=== PATIENT | female | born 1975 | race Caucasian/White ===

== ENCOUNTER 2025-04-02 18:08 | Inpatient (IN) | payer BC, SELFPAY ==
[2025-04-02] VITALS (9 sets, daily range): BP systolic 119–160; BP diastolic 65–102; BMI 25.3
--- NOTE | 2025-04-02 14:28 | CON.NEURO ---
Neuro Assessment/Plan
Assessment
Acute onset right arm and leg weakness in a patient with a prior history of pituitary adenoma
Differential diagnosis includes stroke despite relatively young age, multiple sclerosis creating transverse myelitis which is less likely based on absence of urinary dysfunction
Plan
Check MRI of brain with and without contrast
Check MRI of cervical spine with and without contrast
Check CTA head and neck
Check blood work for potential metabolic abnormalities producing symptomatology
Rehabilitation evaluations
Consider EMG if central nervous system evaluation is not demonstrative of an abnormality
Will follow
Consultation
Order
Date of Consultation: 04/02/25
Requesting Provider: Emergency department physician
Reason for Consult: Right sided weakness
Subjective/Objective
Subjective Data
Date of Service: April 02, 2025
Right handed
Patient reports 3 days ago awakening at 0200 experiencing new onset numbness progressing to weakness across days leading to her presentation at this hospital's emergency department today. No prior events.
Awoke Thursday night from sleep with right-sided chest pain and SOB, tingling and numbness right neck. The patient was able to return to sleep however subsequently did not feel mentation was normal. Numbness at bottom of arm proximally and
distally has been persistent since that time.
Underwent a massage without benefit
Walking was become abnormal 2 days ago. No falling.
One day ago noted difficulty with writing. None of her symptoms have improved since onset of symptoms or worsened.
No involvement on left-side.
Objective Data
Vital Signs
Temp Pulse Resp BP Pulse Ox
36.9 C 96 16 160/100 98
04/02/25 12:37 04/02/25 12:37 04/02/25 12:37 04/02/25 12:37 04/02/25 12:37
Patient Allergies
Penicillins Allergy (Verified 04/02/25 12:40)
Unknown
CVA Assessment
Onset of Stroke Symptoms
Onset of symptoms known: Yes
Date of onset of symptoms: 03/30/25
Time of onset of symptoms: 02:00
Time pt last seen normal is known: Yes
Date last time pt seen normal: 03/30/25
Time last time pt seen normal: 22:00
NIH Stroke Score
Level of Consciousness: 0 - Alert
LOC Questions: 0-Answers both correctly
LOC Commands: 0-Performs both correctly
Best Horizontal Gaze: 0-Normal
Visual Mauricio: 0=Normal, no visual loss
Facial Palsy: 0=Normal, symmetrical
Motor - Right Arm: 1=Drift < 10 seconds
Motor - Left Arm: 0=No drift 10 seconds
Motor - Right Le-No drift 5 seconds
Motor - Left Le-No drift 5 seconds
Limb Ataxia: 1-Present in one limb
Sensation: 0-Normal
Best Language: 0-No aphasia
Dysarthria: 0-Normal
Extinction and Inattention: 0-No abnormality
NIH Total Score:: 2
Tenecteplase Contraindications
Inclusion and Exclusion criteria reviewed: Yes
Reasons for NON-Tx with Thrombolytics ABSOLUTE Exclusions: Time-out of window
IAT Contraindications: NIHSS < 6
Review of Systems
-
History Source: Patient
All other systems: Reviewed and negative
Constitutional: Fatigue
EENT: Negative Blurry Vision or Swallowing Difficulty
Respiratory: Negative Trouble Breathing
Cardiac: Chest Pain (on right chest)
Abdomen/GI: Negative Incontinence of Stool
Genitourinary: Negative Incontinence
Musculoskeletal: Neck Pain (posterior shoulder); Negative Back Pain
Neuro: Weakness and Numbness; Negative Dizzy or Headache
Physical Exam
-
General: No Apparent Distress and Appears Stated Age
Eyes: OU Absent Papilledema, Able to visualize OU, Round OU, [place] Conjunctivae and No Ptosis
HEENT: Anicteric and Moist Mucous Membranes
Neck: Full Range of Motion
Respiratory: No Dyspnea
Cardiac: No JVD
GI: Non-distended
Skin: Unremarkable
Extremities: No Clubbing, No Cyanosis and No Edema
Psych: Intact Judgement/Insight
Extended Neurological Exam
Mood & Affect: Mood Unremarkable and Affect Unremarkable
Attention Span & Concentration: Awake, Alert, Interactive and No Difficulty with 2 Step Request
Memory: Unremarkable
Tremor: Hand Tremor Absent and Head Tremor Absent
Speech: Quality Unremarkable and Quantity Unremarkable
Cranial Nerve II: Left Eye: Pupillary Reactivity Unremarkable, Pupillary Size Unremarkable and Visual Mauricio Intact
Cranial Nerve II: Right Eye: Pupillary Reactivity Unremarkable, Pupillary Size Unremarkable and Visual Mauricio Intact
Cranial Nerves III, IV, : Extraocular Movement: Extraocular Movement Full in all Directions and No Ptosis
Cranial Nerve V: Facial Sensation: Facial Sensation Unremarkable to Cold
Cranial Nerve VII: Facial Symmetry: Normal Facial Symmetry
Cranial Nerve VIII: Hearing: Unremarkable Hearing to Normal Conversational Volume
Cranial Nerves IX, X: Palate Movement: Palate Elevation Symmetric
Cranial Nerve XI: Shoulder Shrug: Unremarkable
Cranial Nerve XII: Tongue Protusion: Midline
Muscle Strength, Overall: Reduced (Proximal right upper greater than lower extremity, 4+ out of 5 in upper extremity, 5- out of 5 right lower extremity; full distally except for right hand finger extensors 4+ out of 5) and Otherwise Intact
Muscle Bulk & Tone: Bulk Unremarkable and Tone Unremarkable
Pronator Drift: Drift in Right Upper Extremity; Negative Drift in Right Lower Extremity
Deep Tendon Reflexes: Unremarkable Throughout
Cold Sensation: Unremarkable
Vibration Sensation: Unremarkable
Touch Sensation: Unremarkable
Coordination: [id number] Testing Unremarkable
Babinski Sign: Absent Bilaterally
Data Reviewed
-
MRI Head: Ordered
MRI Cervical Spine: Ordered
Labs: Ordered and Report Reviewed
Reviewed with: Physician, Nurse and Patient
Old Records: Summarized
Past History
Past History
ED Past Medical History: Other (Migraine headaches, pituitary adenoma since age 23)
ED Past Surgical History: Appendectomy, (x3) and Other (breast surgery)
Social History
Tobacco: Non-smoker
Alcohol: Occasional
Drug: None
Personal: Single
Living: with family
Employment: Employed
Family History
Family History: Other (reviewed and non-contributory)
[2025-04-02 14:34] LABS: % Basophils 0.5 % (0-2); % Eosinophils 2.5 % (0-6); % Immature Granulocytes 0.2 % (0-0.5); % Lymphocytes 14.7 % (20.5-51.1); % Monocytes 7.6 % (1.7-9.3); % Neutrophils 74.5 % (42.2-75.2); Absolute Eosinophils 0.2 10^3/uL (0-0.7); Absolute Lymphocytes 1.3 10^3/uL (1.2-3.4); Absolute Monocytes 0.7 10^3/uL (0.1-0.6); Absolute Neutrophils 6.5 10^3/uL (1.4-6.5); Hematocrit 35.7 % (37.0-47.0); Hemoglobin 12.2 g/dL (12.0-16.0); Mean Corp Hgb Conc. 34.2 g/dL (33.0-37.0); Mean Corpuscular Hgb 30.6 pg (27.0-31.0); Mean Corpuscular Volume 89.5 fL (81.0-99.0); Mean Platelet Volume 10.5 fL (7.4-10.4); Nucleated Red Blood Cells % 0 %; Platelet Count 219 10^3/uL (130-400); Red Blood Cell Count 3.99 10^6/uL (4.20-5.40); White Blood Cell Count 8.8 10^3/uL (4.8-10.8)
--- NOTE | 2025-04-02 14:50 | ED.GENMED ---
History of Present Illness
General
Chief Complaint: Musculo-Skeletal Complaint
Time Seen by Provider: 04/02/25 13:48
History of Present Illness
History of Present Illness:
50-year-old female without significant past medical history presenting to the emergency department for right arm weakness. Patient notes that she woke up on with some tingling to her right upper extremity. She did have some discomfort to
the back of her neck so thought that maybe it was a pinched nerve. She went to get a massage, however reports no interval improvement. Yesterday she felt that her arm was more weak. She went to a and was trying to write her name in the
gas list, however was unable to do so so she was prompted to come to the hospital by her friends. Denies any history of stroke. Denies any family history of neurologic diseases. Denies fever or recent illness. Denies chest pain or difficulty
breathing. Denies any known recent injury or trauma. Denies additional acute medical complaints.
Past History
Past History
ED Past Medical History: Other (Migraine headaches)
ED Past Surgical History: Appendectomy, (x3) and Other (breast surgery)
Phy Exam
Physical Exam
Physical Exam:
General: Well-appearing, no clinical signs of dehydration, nontoxic and in no acute distress
HEENT: protecting airway
Neck: appears supple
CV: Normal heart rate, regular rhythm
Resp: No accessory muscle use, no increased work of breathing, lungs clear to auscultation bilaterally
Abd: No distention
Extremities: No deformities, no swelling, no erythema. 5/5 strength of the right upper extremity with noticeable weakness in comparison to the left. Range of motion grossly intact. Mild tenderness to the right posterior shoulder. No midline
cervical tenderness
Neuro: alert, no focal neurologic deficit
: deferred
Rectal: deferred
Psych: Normal affect
Skin: Intact
Course
Orders/Labs/Results
Orders:
Orders
04/02/25 14:14
Electrocardiogram (*1) Stat
Reason for Study: Other
Other Reason for Exam: neuro symptoms
EKG- Treatment ONCE
04/02/25 14:27
Consult Neurology [NEUROLOGY CONSULT] Urgent
Consulting Provider: Markus Monreal
Was physician already notified: Yes
JIM, IgG Reflex to HEp-2 [S] Urgent
Comment: ADD ON
Complete Blood Count/With Diff Urgent
Comprehensive Metabolic Panel Urgent
Erythrocyte Sed Rate Urgent
Comment: ADD ON
Ferritin Routine
Comment: ADD ON
Folate Routine
Comment: ADD ON
TSH Reflex To Free T4 Routine
Comment: ADD ON
Vitamin B12 Routine
Comment: ADD ON
04/02/25 14:31
Add On- LAB Routine
Comments:: Please add to today's labs or draw as routine
Tests Added?: TSH reflex, Ferritin, Folate, Vit. B12, ESR, JIM
04/02/25 14:32
CT Head & Neck Angio W/wo IV Urgent
Comment:
Reason For Exam: L-arm weakness
04/02/25 14:47
MR Brain W/o & With Contrast Routine
Comment:
Reason For Exam: right arm weakness
Recent pill cam endoscopy?: No
04/02/25 14:48
MR Cervical Spine Without & W Routine
Comment:
Reason For Exam: neck pain, ? transverse myelitis
Recent pill cam endoscopy?: No
04/02/25 15:05
Aspirin Low Dose EC [Aspir Low (Enteric Coated)] 81 mg PO NOW ONE
04/02/25 15:06
ECHO 2D MMode Doppler w Definity [Echo 2D/M Color Dop w Definity] Routine
Reason for Exam: stroke, chest discomfort
04/02/25 15:28
LDL Cholesterol, Direct Routine
Lipid Profile [Cardiovascular Evaluation] Routine
Comment: May add to blood work in lab
04/03/25 08:00
Aspirin Low Dose EC [Aspir Low (Enteric Coated)] 81 mg PO DAILY
Abnormal Lab Results
04/02/25 04/02/25
14:27 15:28
RBC 3.99 L 10^6/uL
(4.20-5.40)
Hct 35.7 L %
(37.0-47.0)
MPV 10.5 H fL
(7.4-10.4)
Absolute Monos (auto) 0.7 H 10^3/uL
(0.1-0.6)
Lymphocytes % 14.7 L %
(20.5-51.1)
Chloride 109 H mmol/L
(98-107)
Alkaline Phosphatase 36 L U/L
(38-126)
Triglycerides 418 H mg/dl
(10-149)
Total Cholesterol 334 H mg/dl
(50-199)
04/02/25 14:27
04/02/25 14:27
Vital Signs
Initial and Last Documented VS:
Initial Vital Signs
Temp Pulse Resp BP Pulse Ox
98.4 F 96 16 160/100 98
04/02/25 12:37 04/02/25 12:37 04/02/25 12:37 04/02/25 12:37 04/02/25 12:37
Last Documented Vital Signs
Temp Pulse Resp BP Pulse Ox
98.4 F 83 18 145/102 100
04/02/25 12:37 04/02/25 15:02 04/02/25 15:02 04/02/25 15:02 04/02/25 15:02
MDM/Problems Addressed
MDM/Problems Addressed:
50-year-old female presenting for right arm weakness. Vital signs are significant for high blood pressure.
On exam patient resting comfortably, no acute distress. Unremarkable cardiac and pulmonary exam. EKG obtained, nonischemic, no arrhythmia. Patient with obvious weakness of the right upper extremity in comparison to the left, however 5/5, no
drift. Sensation grossly intact. Patient without significant risk factors for stroke, however abnormal exam. For this reason we will obtain CT head imaging and consult with neurology. MS is also consideration.
15:30 -neurology to bedside. Continued plan for CT imaging. Neurology recommending admission for MRI.
17:00- CT negative for acute process. Again plan for admission
*Critical Care Note
Total Time (30-74mins, 75-104mins- exclusive of procedures): Not Applicable
ED Attending Note
-
Portions of this chart may have been created with voice recognition software.� Occasional wrong word or��sound alike� substitutions may have occurred due to the inherent limitations of voice recognition software.
Discharge Plan
Departure
Patient Disposition: Admit
Date of Disposition: 04/02/25
Time of Disposition: 17:13
Presentation/result/management discussed w/ accepting MD/DO: Hospitalist
Patient with high blood pressure during this ER visit?: Yes
Condition: Good
Discharge Problem:
Right arm weakness
Prescriptions:
No Action
No Current Medications
0
Referrals:
Nicole Singh CRNP [Family Provider, Family Practice]
Interventions
Interventions:
*Risk Screen - Suicide Last Done: 04/02/25 12:37
*General Assessment Last Done: 04/02/25 15:22
*Neglect/Abuse Screening Last Done: 04/02/25 12:37
*ED- Fall Risk Assessment Last Done: 04/02/25 15:22
*ED COVID-19 Vaccine History Last Done: 04/02/25 15:22
ED-Musculoskeletal Assessment Last Done: 04/02/25 14:25
Discharge Date and Time
Print Language: IRISH
--- NOTE | 2025-04-02 15:11 | EDRN ---
Per Neurology Dr Monreal report to this STRICKLER ATTENDANT, the pt needs MRI imaging studies. This STRICKLER ATTENDANT attempted to call the library acquisitions technician multiple times, but no answer. This STRICKLER ATTENDANT spoke with the DH header operator who stated the dayshift library acquisitions technician shift ended at 3pm but
there is an library acquisitions technician on-call from 3pm-0630am that could be called in for STAT MRI per orders.
Per Neurology Dr Monreal verbal order to this STRICKLER ATTENDANT, the pt does NOT need STAT MRI, the pt can wait until tomorrow for ordered MRI imaging studies.
dispo plan for this pt is admission.
Neurology Dr Monreal also put in orders for Aspirin PO to be administered now, see EMAR.
[2025-04-02 15:19] LABS: ALT (SGPT) 18 U/L (0-35); AST (SGOT) 25 U/L (14-36); Albumin 4.7 g/dl (3.5-5.0); Alkaline Phosphatase 36 U/L (38-126); Blood Urea Nitrogen 14 mg/dl (7-17); Calcium 9.1 mg/dl (8.4-10.2); Carbon Dioxide 25 mmol/L (22-30); Chloride 109 mmol/L (98-107); Estimated Creatinine Clearance 106 ml/min; Glucose 89 mg/dl (70-99); Potassium 4.4 mmol/L (3.5-5.1); Sodium 138 mmol/L (135-145); Total Protein 7.4 g/dl (6.3-8.2); eGFR > 60.00
[2025-04-02] MEDS: ASPIR LOW (ENTERIC COATED) 81 MG PO (15:20)
[2025-04-02 15:27] LABS: TSH Reflex To Free T4 0.79 uIU/ml (0.47-4.68)
[2025-04-02 15:31] LABS: Ferritin 13.6 ng/ml (6.24-137)
[2025-04-02 15:55] LABS: HDL Cholesterol 81 mg/dl
[2025-04-02 16:03] LABS: Folate 6.7 ng/ml (2.76-20); Vitamin B12 359 pg/ml (239-931)
[2025-04-02 16:06] LABS: Total Cholesterol 334 mg/dl (50-199)
[2025-04-02 16:11] LABS: Triglyceride 418 mg/dl (10-149)
[2025-04-02 16:19] LABS: Erythrocyte Sed Rate 14 mm/hour (0-20)
[2025-04-02 16:34] LABS: LDL Cholesterol, Direct 189 mg/dl
--- NOTE | 2025-04-02 17:47 | HPS.HSE ---
Family Physician
-
Family Physician: Nicole Singh
Chief Complaint
-
Right-sided weakness
History of Present Illness
50-year-old female with history of migraine headaches, started developing right upper extremity weakness and paresthesias early morning. Had difficulty writing using her right hand. She is right-handed.
Denies headaches. She felt as though it may have been a pinched nerve in her neck but symptoms persisted. She was referred to the emergency room by her friends.
Denies history of TIA or stroke.
Her only home medication is sumatriptan as needed for migraines, last used a month ago.
She does take herbal supplements.
Denies ambulatory dysfunction or ataxia. Denies lower extremity symptoms.
Remote history of prolactinoma, treated with sumatriptan for approximately 5 years starting at the age of 23. Subsequently discontinued due to shrinkage of the tumor. Last MRI of the brain has been many years ago.
Medical History
Past Medical History
Past Medical History: Reports Other
Additional Past Medical History:
Migraine headaches
Pituitary adenoma, prolactinoma
Past Surgical History: Reports Appendectomy and
Additional Past Surgical History:
Right breast lumpectomy, benign
Social History
Tobacco: Non-smoker
Alcohol: Occasional
Drug: None
Personal:
Living: With Family
Employment: Employed
Family History
Family History: Not pertinent
Allergies / Home Medications
Allergies reflects when Allergies were last updated in [facility].
Home Medications with original date entered in [facility]
Allergy/Medication List:
Allergies
Allergy/AdvReac Type Severity Reaction Status Date / Time
levofloxacin (From Levaquin) Allergy Hives Verified 04/02/25 15:22
Penicillins Allergy Unknown Verified 04/02/25 15:22
Home Medications
Sumatriptan 25 mg p.o. as needed headache
Review of Systems
-
History Source: Patient
A 12 point ROS was completed and negative except as noted: Yes
Physical Exam
Vital Signs
Vital Signs
Temp Pulse Resp BP Pulse Ox
98.4 F 84 16 129/87 99
04/02/25 12:37 04/02/25 17:00 04/02/25 17:00 04/02/25 17:00 04/02/25 17:00
Physical Exam
General: Well Developed, Well Nourished, No Apparent Distress and Comfortable
HEENT: NormoCephalic, Anicteric and Moist mucous membranes
Respiratory: Clear
Cardiac: S1/S2 and Regular Rhythm
Breast: Deferred by me
GI: Soft, Non Tender and Non Distended
Genito-urinary: Deferred by me
Musculoskeletal: No Clubbing, No Cyanosis and No Edema
Skin: Warm and Dry
Neuro: AO x 3 and Other (4 out of 5 right upper extremity motor strength, 5 out of 5 left upper extremity, nonfocal lower extremities)
Hematologic/Lymphatic: No Lymphadenopathy
Psych: Calm
Laboratory Results
-
04/02/25 14:27
04/02/25 14:27
Laboratory Results
Total Bilirubin 1.0 mg/dl (0.2-1.3) 04/02/25 14:27
AST 25 U/L (14-36) 04/02/25 14:27
ALT 18 U/L (0-35) 04/02/25 14:27
Alkaline Phosphatase 36 U/L (38-126) L 04/02/25 14:27
Impression/Plan
-
Subacute right upper extremity weakness -hemodynamically stable. Symptoms started 3 days ago. Differential diagnosis of stroke versus myelitis versus other etiology. NIHSS of 2 per neurology.
CTA head and neck without significant pathology. Hypoplastic left vertebral artery noted. Multilevel degenerative disc disease.
Admit to telemetry. Neurology consulted. Continue aspirin. Brain MRI with and without contrast, cervical spine MRI with and without contrast.
Echocardiogram ordered by neurology.
Hyperlipidemia noted, not on treatment currently. LDL 189, total cholesterol 334, triglycerides 418. HDL 81. Recommend follow-up with PCP.
If stroke confirmed on MRI, start statin.
History of migraine headaches -hold sumatriptan until stroke ruled out. Use Compazine as needed.
History of pituitary prolactinoma
Full code
--- NOTE | 2025-04-02 20:00 | PTCARENOTE ---
Received patient from ED at approx 1930. Patient ambulated from stretcher to bed. AAA x 3. Oriented to room. Call vann in reach.
[2025-04-02 20:20] LABS: C-Reactive Protein < 5.00 mg/L (0.0-10.00)
[2025-04-02] MEDS: TYLENOL 650 MG PO (20:23)
[2025-04-02 22:59] LABS: Troponin I < 0.012 ng/ml
[2025-04-02] MEDS: LOVENOX SC (23:02)
[2025-04-02] MEDS: LIDOCAINE 4% PATCH 1 PATCH TOPICAL (23:42)
[2025-04-03] MEDS: OFIRMEV 100 IV ×2 (01:58→21:52)
[2025-04-03 03:22] VITALS: BP 98/62
[2025-04-03 06:00] VITALS: BMI 24.5
[2025-04-03 07:37] VITALS: BP 145/96
[2025-04-03] MEDS: ASPIR LOW (ENTERIC COATED) 81 MG PO (09:44)
[2025-04-03] MEDS: TYLENOL 650 MG PO (09:54)
[2025-04-03 11:05] VITALS: BP 126/91
--- NOTE | 2025-04-03 14:49 | W.PN.HOSP.TC ---
Today's Communication/Plan
-
Steroids
Assessment / Plan
Assessment / Plan
50-year-old presented with difficulty writing with her right hand
CTA of the head and neck-no acute intracranial pathology. No evidence of acute vascular pathology. Hypoplastic left vertebral artery. Multilevel degenerative disc disease with moderate disc space narrowing C6-C7. Mild disc space narrowing C3-C4
and C4-C5.
EKG sinus rhythm no ischemia
MRI of the brain-no acute changes. Dominant right vertebral artery is tortuous and compresses the right anterior margin of the medulla
Echo-normal LV size and function. EF 55 to 60%. Mild concentric LVH. Mild MR, mild TR, negative bubble study.
CVS: S1-S2 normal
Chest: CTA B/L
Abdomen: Soft, NT / Bowel sounds present
Extremities: No edema, normal pulses
CLIENT SERVICE COORDINATOR: No facial droop. Mild numbness of the right medial forearm, mild weakness of the right forearm good strength of the shoulder on the right side
# Subacute right upper extremity weakness
Started 3 days ago
Patient does not have symptoms of dizziness vertigo, dysarthria-symptoms are unlikely secondary to right dominant vertebral artery tortuosity but secondary to cervical radicular symptoms.
Neurosurgery evaluation requested
Trial of steroids
# Hyperlipidemia not on treatment currently-outpatient follow-up
# History of migraine headaches-okay to use triptans as needed
# History of pituitary prolactinoma
# DVT prophylaxis-Lovenox
# Full code
D/W Neurosurgery. Trial of steroids and outpatient follow-up with neurosurgery. If symptoms do not improve she may need surgery
Part of this note was created using voice recognition system. Occasional wrong word or��sound alike� substitutions may have inadvertently occurred due to the inherent limitations of voice recognition software. If noted kindly bring it to my
attention for correction.
Anticipated Discharge: Within 24 hours
Subjective/Interval History
-
Date of Service: April 03, 2025
Objective Data
-
Vital Signs:
Vital Signs
Temp Pulse Resp BP Pulse Ox
98.2 F 78 20 126/91 100
04/03/25 11:05 04/03/25 11:05 04/03/25 11:05 04/03/25 11:05 04/03/25 11:05
[2025-04-03] MEDS: DECADRON 10 MG IV (15:49)
[2025-04-03 15:51] VITALS: BP 123/85
[2025-04-03] MEDS: FLUSH (NSS) 1 FLUSH IV (15:55)
--- NOTE | 2025-04-03 16:33 | CM ---
general manager reviewed patient's chart and met with patient and patient lives with her parents or children in a 2 story home, patient is independent with adl's and ambulation, no dme, patient drives, home when stable, no needs.
PCP: Nicole Singh
Pharmacy: [facility] in [place]
[2025-04-03] MEDS: LOVENOX 40 MG SC (18:46)
--- NOTE | 2025-04-03 19:30 | W.PN.NEURO.1 ---
Today's Communication / Plan
-
outpatient PT
Dexamethasone 4 q6 IV then discharge on medrol dosepak
Neuro Assessment/Plan
Assessment
MRI brain imgs/report rev'd, normal
MRI cervical spine report rev'd, 'At T1-2, there is a focal moderate to large right subarticular and foraminal disc protrusion, which results in slight compression of the right anterolateral margin of the spinal cord, and contributes to right
foraminal narrowing which appears to be moderate. This most likely is the etiology for the patient's right-sided symptoms.'
by exam I agree this is the likely symptomatic lesion, with right sided weakness, loss of pinprick at the level, and loss of vibration below the level of the lesion; paraspinal tenderness, and +Lhermitte's sign. Patient ambulatory, no falls,
symptoms relatively mild, would try conservative management with physical therapy, gentle traction, Dexamethasone; agree 4mg q6 IV in hospital and discharge on medrol dosepak. spoke with Dr Moon, nsx, no obvious cord compression, discuss outpatient
surgery if not improve.
patient agrees, does not want surgery now
Subjective/Objective
Subjective Data
Date of Service: April 03, 2025
right arm weakness/tingling/numbness persists, mainly in the medial right forearm/arm
no subjective weakness right leg
pain right paraspinals/near shoulder blade
Objective Data
Vital Signs
Temp Pulse Resp BP Pulse Ox
36.7 C 80 20 123/85 99
04/03/25 15:51 04/03/25 15:51 04/03/25 15:51 04/03/25 15:51 04/03/25 15:51
Lab Results
04/02/25 14:27
04/02/25 14:27
Sodium 138 mmol/L (135-145) 04/02/25 14:27
Potassium 4.4 mmol/L (3.5-5.1) 04/02/25 14:27
BUN 14 mg/dl (7-17) 04/02/25 14:27
Glucose 89 mg/dl (70-99) 04/02/25 14:27
Calcium 9.1 mg/dl (8.4-10.2) 04/02/25 14:27
LDL Cholesterol Direct 189 mg/dl 04/02/25 15:28
LDL Cholesterol, Calc Not Reportable 04/02/25 15:28
Vitamin B12 359 pg/ml (239-931) 04/02/25 14:27
Patient Allergies
levofloxacin (From Levaquin) Allergy (Verified 04/02/25 15:22)
Hives
Penicillins Allergy (Verified 04/02/25 15:22)
Unknown
Physical Exam
-
AAOx3
face symmetric
RUE deltoid/biceps/triceps 5-/5, resident care coordinator/finger abductors 4/5, LUE full strength
RUE 5-/5, LLE full strength
decreased pin right T1-T2 (medial forearm, upper arm; intact right C8 and above, and intact on the chest; intact pin right side
mild vibratory loss RLE
+tender right T1-T2 paraspinals
+Lhermitte's sign
[2025-04-03 20:51] VITALS: BP 140/97
[2025-04-03] MEDS: DECADRON 4 MG IV (21:51)
[2025-04-03 23:17] VITALS: BP 121/78
[2025-04-04 03:11] VITALS: BP 109/69
[2025-04-04] MEDS: DECADRON 4 MG IV ×2 (03:15→09:57)
[2025-04-04] MEDS: TYLENOL 1000 MG PO (03:19)
[2025-04-04 07:00] VITALS: BP 110/72
[2025-04-04] MEDS: ASPIR LOW (ENTERIC COATED) 81 MG PO (08:22)
[2025-04-04] MEDS: FLUSH (NSS) 2 FLUSH IV (09:58)
--- NOTE | 2025-04-04 10:17 | CM ---
Chart reviewed, home no needs when stable.
Plan; Home when stable.
[2025-04-04 11:55] VITALS: BP 126/81
--- NOTE | 2025-04-04 14:40 | W.PN.HOSP.TC ---
Today's Communication/Plan
-
Discharge
Assessment / Plan
Assessment / Plan
50-year-old presented with difficulty writing with her right hand
CTA of the head and neck-no acute intracranial pathology. No evidence of acute vascular pathology. Hypoplastic left vertebral artery. Multilevel degenerative disc disease with moderate disc space narrowing C6-C7. Mild disc space narrowing C3-C4
and C4-C5.
EKG sinus rhythm no ischemia
MRI of the brain-no acute changes. Dominant right vertebral artery is tortuous and compresses the right anterior margin of the medulla
Echo-normal LV size and function. EF 55 to 60%. Mild concentric LVH. Mild MR, mild TR, negative bubble study.
CVS: S1-S2 normal
Chest: CTA B/L
Abdomen: Soft, NT / Bowel sounds present
Extremities: No edema, normal pulses
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 Mild numbness of the right medial forearm, mild weakness of the right forearm good strength of the shoulder on the right side, no pain today
# Subacute right upper extremity weakness
Start[address]
Patient does not have symptoms of dizziness vertigo, dysarthria-symptoms are unlikely secondary to right dominant vertebral artery tortuosity but secondary to cervical radicular symptoms.
Neurosurgery evaluation appreciated
Trial of steroids - pt feels better
# Hyperlipidemia not on treatment currently-outpatient follow-up
# History of migraine headaches-okay to use triptans as needed
# History of pituitary prolactinoma
# DVT prophylaxis-Lovenox
# Full code
D/W Neurosurgery. Trial of steroids and outpatient follow-up with neurosurgery. If symptoms do not improve she may need surgery
Part of this note was created using voice recognition system. Occasional wrong word or��sound alike� substitutions may have inadvertently occurred due to the inherent limitations of voice recognition software. If noted kindly bring it to my
attention for correction.
Pt wants to avoid surgery now and follow up if not better
Anticipated Discharge: Today
Subjective/Interval History
-
Date of Service: April 04, 2025
Objective Data
-
Vital Signs:
Vital Signs
Temp Pulse Resp BP Pulse Ox
98.3 F 83 18 126/81 99
04/04/25 11:55 04/04/25 11:55 04/04/25 11:55 04/04/25 11:55 04/04/25 11:55
I&O
04/03/25 04/04/25 04/05/25
06:59 06:59 06:59
Intake Total 240 / 240
Balance 240 / 240
--- NOTE | 2025-04-04 14:40 | W.DS.TRANS ---
Addendum entered and electronically signed by Dianelys England MD 04/04/25 17:22:
Dictation- [id number]
Original Note:
DC Summary - Senior Technical Architect
-
Discharge Instructions:
Discharge Diagnosis/Procedures Cervical radiculopathy
T1-T2 focal moderate to large right subarticular
and foraminal disc protrusion with compression
of the right anterolateral marginal spinal cord
and right foraminal narrowing
Diet As tolerated
Activity As tolerated
Driving Restrictions do not drive if you feel weak
Instructions:
Stand-Alone Forms:
Changes to Home Medications: Yes
Discharge Medications:
DC Medications w/original date entered in [facility] [place]
magnesium L-threonate 1XD 04/02/25
acetaminophen 500 mg tablet (Tylenol Extra Strength) 1,000 mg (2 x 500 mg) PO Q6HPRN PRN pain #0 tabs 04/04/25
famotidine 20 mg tablet (Pepcid) 20 mg PO DAILY Gastrointestinal issue #20 tabs 04/04/25
prednisone 10 mg tablet See Rx Instructions .Route .COMPLEX neck #30 tabs 04/04/25
Home Medication Changes
new
acetaminophen 500 mg tablet (Tylenol Extra Strength) 1,000 mg (2 x 500 mg) PO Q6HPRN PRN pain #0 tabs 04/04/25
famotidine 20 mg tablet (Pepcid) 20 mg PO DAILY Gastrointestinal issue #20 tabs 04/04/25
prednisone 10 mg tablet See Rx Instructions .Route .COMPLEX neck #30 tabs 04/04/25
Pending Results: No
--- NOTE | 2025-04-04 15:06 | CON.NS ---
Consultation
-
Date/Time Consultation Performed: 04/04/2025; 15:00
Performing Provider: Red
Chief Complaint
History of Present Illness
This is a neurosurgical consultation on a 50-year-old female who presents with approximately 5-day history of significant right-sided neck pain, right upper extremity weakness. She denies any inciting event. She reports that on night, she
woke up with severe neck pain, which progressed to right hand weakness. Given her persistent symptoms, she presented to the emergency room. She underwent workup for possible TIA/stroke. MRI of the cervical spine ultimately demonstrated a right
T1-T2 disc herniation. She is right-handed. She was started on high-dose steroids yesterday, and today, she reports that her pain is improved, the best that it has been. She denies any ambulatory dysfunction, or any weakness. She denies any
bowel or bladder changes.
Review of Systems
-
10 point review of systems including constitutional, ENT, cardiovascular, respiratory, GI, , neurologic, musculoskeletal, psychiatric, hematologic, was performed and negative except for as stated in HPI.
Medication and Allergies
Home Medications
Home Medications
�Medication �Instructions �Recorded
magnesium L-threonate 1XD 04/02/25
acetaminophen 500 mg tablet 1,000 mg (2 x 500 mg) PO Q6HPRN 04/04/25
(Tylenol Extra Strength) PRN pain #0 tabs
famotidine 20 mg tablet (Pepcid) 20 mg PO DAILY Gastrointestinal 04/04/25
issue #20 tabs
prednisone 10 mg tablet See Rx Instructions .Route 04/04/25
.COMPLEX neck #30 tabs
Allergies
Allergies
Allergy/AdvReac Type Severity Reaction Status Date / Time
levofloxacin (From Levaquin) Allergy Hives Verified 04/02/25 15:22
Penicillins Allergy Unknown Verified 04/02/25 15:22
Physical Exam
-
Exam:
Awake, alert, no apparent distress.
Cranial nerves II through XII are grossly intact.
Motor: 5/5 strength in the left upper, lower extremity. Patient has 4/5 strength in right triceps, right intrinsics, and trainer. Otherwise 5/5 strength in right upper extremity, lower extremity.
Sensation light touch is intact bilaterally.
Head is normocephalic atraumatic
Neck is supple
Breathing unlabored
Cardiac: Regular rate
Abdomen is soft
Extremities are warm
MRI of the cervical spine performed on 04/03/2025 at approximately 12 PM was reviewed. Images were personally viewed and interpreted by me. There is evidence of a right T1/T2 disc herniation with rostral extrusion causing right severe T1/T2
foraminal impingement. No obvious evidence of cord compression or cord signal change is noted. Sagittal alignment of the cervical, thoracic spine is maintained.
Problems
-
Problem Status Onset Code
Right arm weakness Acute R29.898
Assessment / Plan
-
This is a 50-year-old female who presents with approximately 5-day history of severe right upper extremity pain and weakness. Imaging demonstrates right T1-T2 disc herniation with foraminal impingement. There is no evidence of cord compression.
She is reporting symptom improvement on high-dose steroids, dexamethasone.
Given this, recommend short trial of conservative/nonoperative treatment which would include transition to Medrol Dosepak, physical therapy/Occupational Therapy.
Discussed with the patient that should her symptoms persist, worsen, she would merit surgical intervention. Will plan on following up with the patient in the office in approximately 3 to 4 weeks. Patient provided my contact information.
--- NOTE | 2025-04-05 13:07 | PN.CDI ---
CDI
- -
CDI:
Physician Documentation Request
Admit Date: 04/02/25 18:08
Dear Doctor Tomás,
Please review the following and provide your response in the progress notes.
Clinical Indicators:
The diagnosis of right vertebral artery compresses right anterior margin of medulla was included in the signed Brain MRI reprot.
04/03/2025 Exams: MR Brain W/o & With Contrast
#...suggestion of a dominant right vertebral artery.
#...Right vertebral artery is tortuous and slightly compresses the
#...right anterior margin of the medulla, resulting in deformation.
#...Sometimes, this finding can be associated with
#...symptoms of vertebral artery compression syndrome.
#IMPRESSION:
#...Dominant right vertebral artery is tortuous and
#...compresses the right anterior margin of the medulla.
Based on the above and your clinical assessment, please clarify if the above diagnosis is valid for this patient:
Tortuous right vertebral artery compresses right anterior margin medulla is a valid diagnosis (Please include it in your progress notes)
Tortuous right vertebral artery compresses right anterior margin medulla is not a valid diagnosis for this patient
Tortuous right vertebral artery compresses right anterior margin medulla is not yet confirmed but remains a suspected condition
Other (please specify)
Use of terms such as suspected, likely, concern for, or probable are acceptable for a diagnosis that is being evaluated, monitored or treated as if it exists and can be coded in the inpatient setting, when documented at the time of discharge.
Thank you,
Maggie Da Silva RN BSN CCDS
CDI Specialist
Please contact via tiger text
Please use your independent medical judgment in providing your response.
[2025-04-06 05:28] LABS: ANA, IgG Reflex to HEp-2 None Detected (None Detected)
== END 2025-04-04 15:28 | disposition home or self-care (01) | DRG 73 ==
LOC: 4 WEST ACU 18:08
PROVIDERS: ADMITTING PHYSICIAN Hospitalist; ATTENDING PHYSICIAN Hospitalist; CONSULT PHYSICIAN Neurological Surgery; CONSULT PHYSICIAN Psychiatry & Neurology Neurology; EMERGENCY PHYSICIAN Student in an Organized Health Care Education/Training Program; FAMILY PHYSICIAN Registered Nurse
DX: M54.12 Radiculopathy, cervical region (principal); G93.5 Compression of brain; M51.04 Intervertebral disc disorders with myelopathy, thoracic region; R03.0 Elevated blood-pressure reading, without diagnosis of hypertension; D35.2 Benign neoplasm of pituitary gland; G43.909 Migraine, unspecified, not intractable, without status migrainosus; M50.30 Other cervical disc degeneration, unspecified cervical region; I77.1 Stricture of artery; E78.5 Hyperlipidemia, unspecified; Z88.1 Allergy status to other antibiotic agents; Z88.0 Allergy status to penicillin; Z90.49 Acquired absence of other specified parts of digestive tract
CPT/HCPCS: 70496; 70498; 70553; 72156; 80053; 80061; 82607; 82728; 82746; 83721; 84443; 84484; 85025; 85652; 86038; 86140; 93005; 93306; 99285; A9575; Q9967